=== PATIENT | female | born 1975 | race Caucasian/White ===

== ENCOUNTER 2018-04-06 14:29 | Emergency (ER) | payer BC ==
[~2018-04-06] VITALS: Ht 175.3 cm; Wt 90.7 kg
== END 2018-04-06 16:17 | disposition home or self-care (01) ==
LOC: ER 14:29
DX: S80.11XA Contusion of right lower leg, initial encounter (principal); S90.01XA Contusion of right ankle, initial encounter; W18.09XA Striking against other object with subsequent fall, initial encounter; Y93.01 Activity, walking, marching and hiking; Y92.832 Beach as the place of occurrence of the external cause; Y99.8 Other external cause status